=== PATIENT | female | born 1955 | race Caucasian/White ===

== ENCOUNTER → 2016-06-15 | Outpatient (CLI) | payer BC ==
[~2016-06-15] VITALS: Ht 170.2 cm; Wt 136.1 kg
[~2016-06-15] MED LIST: ALPRAZOLAM2 M1 PO; APAP500 PO; CORTISPORIN OTI10 M2 OTIC; DIFLUCAN200 MG PO; GLUCOPHAGE1000 MG PO; HYZAAR 50-12.51 TAB PO; MACROBID 100 M100 M1 PO; NEURONTIN 300300 M1 PO; PRAVACHOL40 MG PO; PREMARIN1.25 MG PO; RELAFEN750 MG PO; VIIBRYD40 MG PO
--- NOTE | ~2016-06-15 | EKG ---
[place] [address] [facility] [place] [address] ELECTROCARDIOGRAM REPORT Name: TERRELL SAENZ [facility] [id number] Admission: 06/15/16 Attend Phys: Darian De La Fuente MD Discharge: Date of : 53 Report #: [id number] THIS REPORT FOR: //name// [facility] Test Date: 2016-06-15 Test Time: 09:17:01 Pat Name: TERRELL SAENZ Department: Room: Gender: F [employer] Model Builder: Mayra ALEXANDER : 1955 Requested By: Darian De La Fuente Order Number: [id number] MD: Lit Huntley Measurements Intervals [place] Rate: 68 P: 37 OK: 179 QRS: 13 QRSD: 106 T: 27 QT: 416 QTc: 443 Interpretive Statements Sinus rhythm No significant abnormality Compared to ECG 04/07/2008 18:39:30 Poor R-wave progression no longer present Electronically Signed On 06-16-2016 8:45:02 CDT by Lit Huntley [email or web address] <ELECTRONICALLY SIGNED> By: Lit Huntley MD, [facility] 06/16/16 0845 6 6 Lit Huntley MD, FACC /EPI
--- NOTE | ~2016-06-15 | CATHLAB ---
[facility] Bill [place] [address] INVASIVE PROCEDURE REPORT Name: TERRELL SAENZ [facility] #: [facility] [id number] Admission: 06/15/16 Attend Phys: Darian De La Fuente MD Discharge: Date of : 53 Date of Service: 06/15/16 1021 Report #: [id number] THIS REPORT FOR: //name// CC: Darian Vargas DATE OF SERVICE: 06/15/2016 INDICATION: Unstable angina, abnormal stress test. Full risks, benefits and alternatives of cardiac catheterization were explained to the patient. All questions were answered. Informed consent was obtained. A Barbeau test was performed on the right radial artery. The right wrist area was prepped and draped in a sterile manner. Lidocaine was given subcutaneously. A 5-Estonian sheath was inserted into the right radial artery via modified Seldinger technique. Nitroglycerin and verapamil was introduced through the sheath. 5000 units of heparin was given through a peripheral IV. CORONARY ANATOMY: The left main artery is a large caliber vessel, with no flow-limiting lesions. The LAD is a cjyzroqb-ko-vdtrh size caliber vessel, travelling down the anterior wall and wrapping around the apex. There is only mild disease in the mid segment, less than 20%. The left circumflex artery is a hhvufdpl-no-gikmo size caliber vessel, somewhat ectatic in the mid segment. There were no flow-limiting lesions in the left circumflex artery. There are 3 obtuse marginal arteries, with no flow-limiting lesions. The RCA is a dominant vessel, supplying a PDA and posterolateral branch. There is only mild disease in the proximal segment of the RCA, less than 20%. A left ventriculogram was performed revealing normal LV systolic function, ejection fraction of 60%. The LVEDP is approximately 17 mmHg. There is no gradient across the outflow tract. At the end of the procedure, the sheath was removed and a Vasc band was applied for hemostasis. IMPRESSION: 1. Mild, nonobstructive coronary artery disease. [facility] [place] [address] INVASIVE PROCEDURE REPORT Name: TERRELL SAENZ Room #: REG [facility]#: [id number] Admission: 06/15/16 Attend Phys: Darian De La Fuente MD Discharge: Date of : 53 Date of Service: 06/15/16 1021 Report #: [id number] 2. Normal left ventricular systolic function. 3. Recommend medical therapy. <ELECTRONICALLY SIGNED> By: Darain De La Fuente MD 06/16/16 0755 1021 1300 Darian De La Fuente MD /nt
[2016-06-15 08:39] LABS: HEMATOCRIT 45.5 % (37.0-47.0); HEMOGLOBIN 15.3 gm/dL (12.0-15.0); MCHC 33.6 g/dL (28.0-37.0); MCV 83.4 fL (80.0-100.0); RBC 5.46 mil/uL (4.20-5.00); RDW 14.5 % (10.5-14.5); WBC 10.6 thou/uL (4.0-11.0)
[2016-06-15 08:43] VITALS: BP 122/64
[2016-06-15 08:45] LABS: CREATININE 0.7 mg/dL (0.6-1.0); POTASSIUM 4.1 mmol/L (3.5-5.1)
== END | disposition home or self-care (01) ==
LOC: CATH 07:00
PROVIDERS: Internal Medicine Cardiovascular Disease
DX: I25.10 Atherosclerotic heart disease of native coronary artery without angina pectoris (principal); I10 Essential (primary) hypertension; E11.9 Type 2 diabetes mellitus without complications; E78.5 Hyperlipidemia, unspecified; F41.9 Anxiety disorder, unspecified; F32.9 Major depressive disorder, single episode, unspecified; K21.9 Gastro-esophageal reflux disease without esophagitis; E66.09 Other obesity due to excess calories; F17.210 Nicotine dependence, cigarettes, uncomplicated; Z90.710 Acquired absence of both cervix and uterus; Z98.890 Other specified postprocedural states

== ENCOUNTER → 2016-09-02 | Outpatient (CLI) | payer BC | LOC: RAD 01:11 | DX: Z12.31 Encounter for screening mammogram for malignant neoplasm of breast (principal) ==

== ENCOUNTER → 2016-09-08 | Outpatient (CLI) | payer BC | LOC: RAD 01:58 | DX: N63 Unspecified lump in breast (principal); R92.8 Other abnormal and inconclusive findings on diagnostic imaging of breast ==

== ENCOUNTER → 2017-04-23 | Outpatient (CLI) | payer BC, OTHER | LOC: CAT 11:16 | DX: I25.10 Atherosclerotic heart disease of native coronary artery without angina pectoris (principal); K76.0 Fatty (change of) liver, not elsewhere classified; R91.1 Solitary pulmonary nodule ==

== ENCOUNTER → 2017-09-09 | Outpatient (CLI) | payer BC ==
--- NOTE | ~2017-09-09 | 2DMMODE ---
[facility] [place] [address] 2 D/M-MODE ECHOCARDIOGRAM Name: TERRELL SAENZ Room #: REG CL [facility]#: [id number] Admission: 09/09/17 Attend Phys: Darian De La Fuente MD Discharge: Date of : 53 Date of Service: 09/09/17 1547 Report #: [id number] THIS REPORT FOR: //name// APPROVED REPORT Study performed: 09/09/2017 14:59:34 EXAM: Comprehensive 2D, Doppler, and color-flow Echocardiogram Patient Location: Echo lab Status: routine BSA: 2.48 HR: 67 bpm BP: 130/83 mmHg Other Information Study Quality: Adequate Indications CAD Chest Pain 2D Dimensions RVDd: 27.21 mm LVEF(%): 57.03 (>50%) IVSd: 12.62 (7-11mm) LVOT Diam: 22.07 (18-24mm) LVDd: 48.11 mm PWd: 12.62 (7-11mm) Ascending Ao: 28.85 (22-36mm) LVDs: 33.71 (25-40mm) Aortic Root: 24.87 mm IVC: 13.00 mm Lorenzana's LVEF: 57.03 % Volumes Left Atrial Volume (Systole) Single Plane 4CH: 48.34 mL Single Plane 2CH: 69.98 mL LA ESV Index: 27.00 mL/m2 Aortic Valve AoV Peak Benny.: 1.44 m/s AO Peak Gr.: 8.30 mmHg LVOT Max P.49 mmHg LVOT Max V: 1.27 m/s SAHIL Vmax: 3.38 cm2 Mitral Valve E/A Ratio: 0.8 MV Decel. Time: 360.33 ms [facility] [address] [address] 2 D/M-MODE ECHOCARDIOGRAM Name: TERRELL SAENZ Room #: [facility]#: [id number] Admission: 09/09/17 Attend Phys: Darian De La Fuente MD Discharge: Date of : 53 Date of Service: 09/09/17 1547 Report #: [id number] MV E Max Benny.: 0.73 m/s MV A Benny.: 0.89 m/s MV PHT: 104.50 ms IVRT: 110.73 ms Pulmonary Valve PV Peak Benny.: 1.08 m/s PV Peak Gr.: 4.68 mmHg Pulmonary Vein P Vein S: 0.54 m/s P Vein A: 0.26 m/s P Vein D: 0.35 m/s P Vein A Dur.: 92.3 msec P Vein S/D Ratio: 1.54 Tricuspid Valve RAP Estimate: 5.00 mmHg Left Ventricle The left ventricle is normal size. Mild concentric left ventricular hypertrophy. The left ventricular systolic function is normal. The left ventricular ejection fraction is within the normal range. LVEF is 55%. Mild diastolic dysfunction is present (impaired relaxation pattern). Right Ventricle The right ventricle is normal size. The right ventricular systolic function is normal. Atria The left atrium size is normal. The right atrium size is normal. Aortic Valve The aortic valve is normal in structure. No aortic regurgitation is present. There is no aortic valvular stenosis. Mitral Valve The mitral valve is normal in structure. Trace mitral regurgitation. No evidence of mitral valve stenosis. Tricuspid Valve The tricuspid valve is normal in structure. There is no tricuspid valve regurgitation noted. Unable to assess PA pressure. Pulmonic Valve Pulmonic valve is not well visualized. Trace pulmonic regurgitation. [facility] [address] [place] [address] 2 D/M-MODE ECHOCARDIOGRAM Name: TERRELL SAENZ Room #: REG [facility]#: [id number] Admission: 09/09/17 Attend Phys: Darian De La Fuente MD Discharge: Date of : 53 Date of Service: 09/09/17 1547 Report #: [id number] Great Vessels The aortic root is normal in size. IVC is normal in size and collapses >50% with inspiration. Pericardium There is no pericardial effusion. <Conclusion> The left ventricle is normal size. Mild concentric left ventricular hypertrophy. The left ventricular systolic function is normal. Mild diastolic dysfunction is present (impaired relaxation pattern). The right ventricle is normal size. The left atrium size is normal. There is no aortic valvular stenosis. Trace mitral regurgitation. There is no tricuspid valve regurgitation noted. <ELECTRONICALLY SIGNED> By: Darian De La Fuente MD 09/09/17 1547 1547 154 Dairan De La Fuente MD /INF
== END ==
LOC: CV 08:51
DX: I51.7 Cardiomegaly (principal); I25.10 Atherosclerotic heart disease of native coronary artery without angina pectoris